=== PATIENT | female | born 1995 | race Caucasian/White ===

== ENCOUNTER 2018-08-14 06:10 | Day surgery (SDC) | payer OTHER ==
[~2018-08-14] VITALS: Ht 175.3 cm; Wt 73.5 kg
[2018-08-14 13:08] VITALS: BP 123/75
[2018-08-14 17:19] VITALS: BP 123/75
--- NOTE | 2018-08-16 07:03 | O ---
[facility] [place] [address] OPERATIVE REPORT Name: STERLING ZHENG Room #: DEP [facility]..#: [id number] Admission: 08/14/18 ������������������ Attend Phys: Lalit Leggett MD Discharge: 08/14/18 ������������������ Date of : [birth year] Report #: [id number] THIS REPORT FOR: //name// CC: [facility] physician/PCP Lalit Leggett DATE OF SERVICE: 08/14/2018 SERVICE: Orthopedics. FACILITY: [facility]. SURGEON: Lalit Leggett MD. DIRECTOR DATA MANAGEMENT: Antonella Brandon NP. INDICATIONS FOR ASSISTANCE: Graft preparation, suture management, assistance with repair and reconstruction. PREOPERATIVE DIAGNOSIS: Left knee anterior cruciate ligament tear. POSTOPERATIVE DIAGNOSIS: Left knee anterior cruciate ligament tear. PROCEDURES: Left knee anterior cruciate ligament reconstruction with quadriceps tendon autograft. COMPLICATIONS: None. DRAINS: None. SPECIMENS: None. ANESTHESIA TYPE: General with regional. FINDINGS: 1. Intact articular cartilage and meniscus. 2. Quad tendon autograft fixed with Arthrex suture tape, double strand, tied over femoral cortical button with tibial interference screw measuring 10 x 30 mm with 4.75 mm SwiveLock backup fixation. HISTORY: The patient is 23-year-old young lady who plays volleyball and sustained an acute left knee injury, which resulted in ACL tear. She was treated with initial physical therapy. She wishes to return to athletics and therefore, it was indicated for surgical treatment after she had recovery of her range of motion. MRI was suggestive of no significant meniscal pathology. We had a discussion about risks, benefits, alternatives and indications for [facility] [address] [place] [address] OPERATIVE REPORT Name: STERLING ZHENG Room #: DEP [facility] M.R.#: [id number] Admission: 08/14/18 ������������������ Attend Phys: Lalit Leggett MD Discharge: 08/14/18 ������������������ Date of : [birth year] Report #: [id number] surgical treatment. I did recommend autograft tissue and we selected the quadriceps tendon autograft. Risks include, but not limited to pain, bleeding, infection, injury to nerves or blood vessels, persistent pain despite surgical intervention, failure of any repairs, reconstructions, progression of any preexisting chondral injury, stiffness, need for further surgery, retear as well as complications related to anesthesia. PROCEDURE IN DETAIL: After left lower extremity was correctly identified in preoperative holding area as the operative extremity, the patient underwent placement of a single shot regional nerve block. She was then taken to the operating room where general anesthesia was induced without complication with LMA. She was padded appropriately. Prophylactic antibiotics were administered at appropriate time. Left leg tourniquet applied and the left leg was prepped and draped in standard sterile fashion. Time-out procedure was performed. Esmarch was used. Tourniquet inflated to 250 mmHg. Total tourniquet time was approximately 95 minutes. A 1-inch incision was made over the superior pole of the patella. Dissection was taken down to the quadriceps tendon and a 10 mm graft was harvested from the quadriceps tendon. Partial thickness graft was then obtained, splint into Y shape. We utilized 2 Arthrex labral tapes on the patellar end, which yielded 4 suture limbs and then split the graft up on the proximal side into a Y-shape graft and then used whipstitches on both tails as well. A small rent within the synovial lining was repaired with 0 Vicryl suture with a running locking suture. An anterolateral viewing portal was established followed by anterior medial working portal. Diagnostic arthroscopy revealed no loose bodies and intact articular cartilage throughout. The menisci were normal and intact to probing. The ACL was torn in two locations. A portion was torn off of the femur and then a portion was torn at the tibial insertion as well. It was an unstable ligament, which was consistent with the examination under anesthesia, which demonstrated positive Franc, positive shift. Arthrex 10 mm FlipCutter was then used to create a 23 x 10 mm socket within the lateral aspect of the intercondylar notch on the lateral femoral condyle. After the ACL tissue had been debrided and removed. We placed it in the anatomic position utilizing the intercondylar Ridge as a guide. A 10.5 mm reamer was then used to create a tunnel within the tibia into the tibial footprint. The remnant of the tibial stump of the ACL was used for anatomic guidance as well. Then the graft was passed into the knee, was securely seated within the femoral socket and then the four limbs of the suture tape were tied over a cortical button on the femoral side, which was placed from outside in. Tension was then applied to the graft, then we take it through a range of motion to eliminate graft creep and then the knee was placed into extension, reverse lock maneuver was performed and then 10 x 30 mm interference screw was placed between the two limbs of the Y-shaped graft. A guidepin had been placed between the limbs prior to passage of the graft into the knee. After the graft was fixed with the screw, the camera was [facility] [address] [place] [address] OPERATIVE REPORT Name: STERLING ZHENG Room #: DEP [facility]#: [id number] Admission: 08/14/18 ������������������ Attend Phys: Lalit Leggett MD Discharge: 08/14/18 ������������������ Date of : [birth year] Report #: [id number] placed to confirm that the screw was in appropriate position both extra-articularly on the tibial side and then the scope was placed back into the knee to confirm that the screw did not penetrate the articular space. The suture limbs were then passed through a 4.75 mm SwiveLock, which was placed on the anterior aspect of the tibia for backup fixation. Suture tails were cut, Franc was restored. The ACL appeared to be in appropriate position and securely fixed on arthroscopic assessment. Note that we did take the knee into full extension after the guidepin had been placed to ensure that there was not any significant notch roof impingement. The deep layer was then closed with 2-0 Vicryl, skin was closed with 3-0 Monocryl, sterile dressing was applied followed by compression stocking and PolarCare as well as a knee immobilizer. The patient was awakened from anesthesia and taken to recovery room in stable condition. There were no complications. All counts were recorded as correct. ��������������������������������������������� <ELECTRONICALLY SIGNED> ���������������������������������������� By: Lalit Leggett MD ��������������������������������������������� 08/16/18 [id number] Lalit Leggett MD /nt
== END 2018-08-14 18:20 | disposition home or self-care (01) ==
LOC: TBA 06:10 → OR 06:10
DX: S83.512A Sprain of anterior cruciate ligament of left knee, initial encounter (principal); J45.909 Unspecified asthma, uncomplicated; Z98.890 Other specified postprocedural states; X58.XXXA Exposure to other specified factors, initial encounter; Y93.68 Activity, volleyball (beach) (court); Y92.89 Other specified places as the place of occurrence of the external cause; Y99.8 Other external cause status
CPT/HCPCS: 50010; 50101; 50386; 50405; 51038; 51320; 52001; 52282; 52313; 54118; 54170; 55430; 56524; 56527; 57103; 57180; 62110; 62900; 64039; 70005